=== PATIENT | male | born 1985 | race Hispanic/Latino ===

== ENCOUNTER 2019-12-04 08:36 | Outpatient (CLI) | payer BC ==
--- NOTE | 2019-12-04 11:06 | ULT ---
RIGHT UPPER QUADRANT ULTRASOUND: INDICATION: Abnormal liver function tests. FINDINGS: The gallbladder has a normal sonographic appearance. No evidence of gallstones. The common bile duct is normal caliber measured at 3-4 mm. The liver is mildly echogenic which suggests fatty infiltration. No focal liver lesion. Pancreas is obscured. The right kidney is imaged and appears unremarkable. IMPRESSION: 1. Evidence of hepatic steatosis. 2. Gallbladder appears normal by ultrasound. POS: AGW
== END 2019-12-04 08:37 | disposition home or self-care (01) ==
LOC: BICULT 08:36
PROVIDERS: ATTEND Nurse Practitioner Family
DX: R94.5 Abnormal results of liver function studies (principal); K76.0 Fatty (change of) liver, not elsewhere classified
CPT/HCPCS: 76705